=== PATIENT | female | born 1960 | race Caucasian/White ===

== ENCOUNTER 2019-03-08 07:55 | Day surgery (SDC) | payer BC ==
[~2019-03-08] VITALS: Ht 165.1 cm; Wt 85.0 kg
[~2019-03-08 07:55] MED LIST: BALSALAZIDE DI750 MG PO; CALCIUM600 M1 PO; COLACE 100100 MG/CAP PO; FLONASE NASAL S16 GM NS; HYZAAR 50-12.1 UDTAB PO; KLOR-CON 1010 MEQ PO; KLOR-CON 88 MEQ PO; LEVOXYL0.075 MG PO; MIRALAX 17GM PK1 PKT PO; MVI PO; NORVASC2.5 MG PO; PRILOSEC 20MG20 MG PO; PROAIR HFA0.09 MG/AC IH; RT ADVAIR 128 DISKUS IH; RT ADVAIR 228 DISKUS IH; SINGULAIR 110 MG/TAB PO; SINGULAIR10 MG PO; SYNTHROID0.1 MG/TAB PO; VASOTEC5 MG PO; VITAMIN D1000 IU PO; ZYRTEC 10MG10 MG PO; ZYRTEC-D 12HR 51 TER PO
[2019-03-08] MEDS ORDERED: HYZAAR 50-12.1 UDTAB PO (08:27)
[2019-03-08] MEDS ORDERED: PRIL40 PO (08:27)
[2019-03-08] MEDS ORDERED: NORVASC2.5 MG PO (08:27)
[2019-03-08] MEDS ORDERED: SINGULAIR 110 MG/TAB PO (08:28)
[2019-03-08] MEDS ORDERED: KLOR-CON 1010 MEQ PO (08:28)
[2019-03-08] MEDS ORDERED: BALSALAZIDE DI750 MG PO (08:28)
[2019-03-08] MEDS ORDERED: LEVOXYL0.1 MG PO (08:29)
[2019-03-08] MEDS ORDERED: ZYRTEC-D 5 MG-11 TER PO (08:29)
[2019-03-08] MEDS ORDERED: PROAIR HFA0.09 MG/AC IH (08:30)
[2019-03-08] MEDS ORDERED: RT ADVAIR 228 DISKUS IH (08:30)
[2019-03-08] MEDS ORDERED: FLONASE NASAL S16 GM NS (08:30)
[2019-03-08 08:31] VITALS: BP 154/94; PULSE 86; TEMP 97.1
[2019-03-08] MEDS ORDERED: [UNRECOGNIZED DRUG - OTHER] PO (08:31)
[2019-03-08 10:20] VITALS: BP 131/82; PULSE 72
--- NOTE | 2019-03-08 10:20 | NUR ---
Patient returns to room 4 per cart and transfers from the cart to recliner with one person assist. Temp 97.0 and room air sats 98%. IV fluids infusing and site is free of redness. Spouse in room and patient allowed to rest. Call light in reach.
[2019-03-08 10:35] VITALS: BP 133/82; PULSE 79
--- NOTE | 2019-03-08 10:35 | NUR ---
Dr. Frazier here to talk with the patient and spouse. All questions answered. Room air sats 98%.
[2019-03-08 10:50] VITALS: BP 130/82; PULSE 84
--- NOTE | 2019-03-08 10:50 | NUR ---
Eating muffin and drinking water. Denies pain or nausea.
[2019-03-08 11:05] VITALS: BP 125/81; PULSE 83
--- NOTE | 2019-03-08 11:05 | NUR ---
Tolerates muffin and water.
--- NOTE | 2019-03-08 11:15 | NUR ---
IV discontinued and given dismissal instructions.
--- NOTE | 2019-03-08 11:19 | NUR ---
Patient dismissed to home per private vehicle driven by spouse and taken to the front door per wheelchair and assisted into car by RN with dismissal instructions in hand.
== END 2019-03-08 11:19 | disposition home or self-care (01) ==
LOC: SDCO 07:55
DX: K21.9 Gastro-esophageal reflux disease without esophagitis (principal); K51.90 Ulcerative colitis, unspecified, without complications; Z88.2 Allergy status to sulfonamides; E03.9 Hypothyroidism, unspecified; I10 Essential (primary) hypertension; K59.00 Constipation, unspecified; J45.909 Unspecified asthma, uncomplicated; K76.0 Fatty (change of) liver, not elsewhere classified; Z80.0 Family history of malignant neoplasm of digestive organs; Z83.71 Family history of colonic polyps; Z83.79 Family history of other diseases of the digestive system; Z90.710 Acquired absence of both cervix and uterus
CPT/HCPCS: J2250; J2704; J3010; J7030

== ENCOUNTER → 2021-07-13 | Outpatient (CLI) | payer OTHER ==
[~2021-07-13] MED LIST changes: +LEVOXYL0.1 MG PO; +PRIL40 PO; +ZYRTEC-D 5 MG-11 TER PO; +[UNRECOGNIZED DRUG - OTHER] PO
== END ==
LOC: COL.LAB 09:31
DX: R73.03 Prediabetes (principal)